=== PATIENT | male | born 2000 | race Hispanic/Latino ===

== ENCOUNTER 2019-10-21 23:14 | Emergency (ER) | payer SELFPAY ==
[2019-10-21] MEDS ORDERED: NEOMY/POLY/HC 1% OTIC DROPS ONE (23:37)
--- NOTE | 2019-10-21 23:57 | ER ---
Nurse's Notes [facility] Name: Phillip Moralez Age: 19 yrs Sex: Male : 2000 Arrival Date: 10/21/2019 Time: 23:17 Bed 23 Private MD: Diagnosis: Other otitis externa, bilateral Presentation: 10/20 23:23 Chief complaint: Patient states: pt reports having Bilateral ear pain that began last sg night and worsening this morning, pt states having taken some amoxcillin and tylenol about 8 hrs ago, pt states having pain that is worsening this evening. Coronavirus screen: Proceed with normal triage. Ebola Screen: Patient negative for fever greater than or equal to 101.5 degrees Fahrenheit, and additional compatible Ebola Virus Disease symptoms Patient denies exposure to infectious person. Patient denies travel to an Ebola-affected area in the 21 days before illness onset. No symptoms or risks identified at this time. 23:23 Method Of Arrival: Ambulatory sg 23:23 Initial Sepsis Screen: Does the patient meet any 2 criteria? HR > 90 bpm. Does the sg patient have a suspected source of infection? No. Patient's initial sepsis screen is negative. Risk Assessment: Do you want to hurt yourself or someone else? Patient reports no desire to harm self or others. Onset of symptoms was October 21, 2019. Care prior to arrival: None. 23:23 Acuity: VICTOR M 3 sg Triage Assessment: 23:21 General: Appears in no apparent distress. uncomfortable, Behavior is calm, cooperative. ls4 23:21 Pain: Complains of pain in left ear and right ear Pain currently is 10 out of 10 on a ls4 pain scale. EENT: Tympanic membrane reddened on right ear and left ear. Historical: - Allergies: 23:26 No Known Allergies; sg - Home Meds: 23:26 None [Active]; sg - PMHx: 23:26 None; sg - PSHx: 23:26 None; sg - Immunization history:: Adult Immunizations up to date. - Social history:: Smoking status: Patient denies any tobacco usage or history of. Screenin:21 Abuse screen: Denies threats or abuse. Denies injuries from another. Nutritional ls4 screening: No deficits noted. Tuberculosis screening: No symptoms or risk factors identified. Fall Risk None identified. Vital Signs: 23:23 BP 140 / 90; Pulse 118; Resp 18; Temp 98.7; Pulse Ox 100% on R/A; Weight 83.91 kg; sg Height 5 ft. 9 in. (175.26 cm); Pain 10/10; 23:23 Body Mass Index 27.32 (83.91 kg, 175.26 cm) ED Course: 23:17 Patient arrived in ED. cl3 23:18 Noelle Farooq FNP-C is [facility]. kb 23:18 Aramis Plascencia MD is Attending Physician. kb 23:21 Patient has correct armband on for positive identification. Bed in low position. Call ls4 light in reach. Side rails up X 1. Pulse ox on. NIBP on. Verbal reassurance given. 23:21 No provider procedures requiring assistance completed. Patient did not have IV access ls4 during this emergency room visit. 23:26 Triage completed. 23:26 Arm band placed on. 10/21 00:07 Pretty Plascencia, RN is Primary Nurse. ls4 Administered Medications: 10/20 23:40 Drug: Cortisporin Drops 4 drops Route: Otic; Site: both ears; ls4 10/21 00:08 Follow up: Response: No adverse reaction; Marked relief of symptoms ls4 Outcome: 10/20 23:56 Discharge ordered by . 10/21 00:08 Discharged to home ambulatory. ls4 Condition: good Discharge instructions given to patient, Instructed on discharge instructions, follow up and referral plans. medication usage, Demonstrated understanding of instructions, follow-up care, medications, Prescriptions given X 1. 00:12 Patient left the ED. ls4 Signatures: Noelle Farooq FNP-C FNP-Ckb Gay, Steven, RN RN Pretty Plascencia, RN RN ls4 Thanh Rod cl3
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
[2019-10-22 00:37] VITALS: BP 140/90; TEMP 98.7; O2SAT 100
== END 2019-10-22 00:12 | disposition home or self-care (01) ==
LOC: ER 23:14
DX: H60.8X3 Other otitis externa, bilateral (principal)
CPT/HCPCS: 99283

== ENCOUNTER 2019-10-22 12:45 | Emergency (ER) | payer SELFPAY ==
[2019-10-22] MEDS ORDERED: HYDROCODONE/APAP 7.5/325 MG TAB ONE (13:32)
--- NOTE | 2019-10-22 13:41 | ER ---
Nurse's Notes [facility] Name: Phillip Moralez Age: 19 yrs Sex: Male : 2000 Arrival Date: 10/22/2019 Time: 12:48 Bed 16 Private MD: Diagnosis: Acute serous otitis media, bilateral Presentation: 10/21 13:02 Chief complaint: Patient states: seen in ER last night for bilateral ear pain and given ss ear drops. Pt reports that the pain is much worse and he feels as if he has swelling to his L face. Coronavirus screen: Proceed with normal triage. Patient denies a cough. Patient denies shortness of breath or difficulty breathing. Patient denies measured and/or subjective temperature greater than 100.4F prior to today's visit. Patient denies travel on a cruise ship or to a country the [facility] currently lists as an affected area. Patient denies contact with known and/or suspected case of COVID-19. Ebola Screen: Patient denies exposure to infectious person. Patient denies travel to an Ebola-affected area in the 21 days before illness onset. Initial Sepsis Screen: Does the patient meet any 2 criteria? No. Patient's initial sepsis screen is negative. Does the patient have a suspected source of infection? No. Patient's initial sepsis screen is negative. Risk Assessment: Do you want to hurt yourself or someone else? Patient reports no desire to harm self or others. Onset of symptoms was October 20, 2019. 13:02 Method Of Arrival: Ambulatory ss 13:02 Acuity: VICTOR M 4 ss Historical: - Allergies: 13:04 No Known Allergies; ss - PMHx: 13:04 None; ss - PSHx: 13:04 None; ss - Immunization history:: Adult Immunizations up to date. - Social history:: Smoking status: Patient reports the use of cigarette tobacco products, smokes one-half pack cigarettes per day, Patient/guardian denies using alcohol, street drugs, The patient lives with family. - Family history:: not pertinent. Screenin:14 Abuse screen: Denies threats or abuse. Nutritional screening: No deficits noted. em Tuberculosis screening: No symptoms or risk factors identified. Fall Risk None identified. Assessment: 13:54 General: Appears in no apparent distress. uncomfortable, Behavior is calm, cooperative, vc appropriate for age. Pain: Complains of pain in left ear and right ear Pain does not radiate. Pain currently is 8 out of 10 on a pain scale. Pain: Pain currently is 6 out of 10 on a pain scale. Neuro: Level of Consciousness is awake, alert, obeys commands, Oriented to person, place, time, situation, Appropriate for age. Cardiovascular: Capillary refill < 3 seconds Patient's skin is warm and dry. Respiratory: Airway is patent Respiratory effort is even, unlabored, Respiratory pattern is regular, symmetrical. GI: No signs and/or symptoms were reported involving the gastrointestinal system. : No signs and/or symptoms were reported regarding the genitourinary system. EENT: Reports pain in left ear and right ear. Derm: No signs and/or symptoms reported regarding the dermatologic system. Musculoskeletal: Circulation, motion, and sensation intact. Range of motion: intact in all extremities. Vital Signs: 13:02 BP 143 / 94; Pulse 107; Resp 16; Temp 99.9(TE); Pulse Ox 97% on R/A; Weight 89.81 kg; ss Height 5 ft. 6 in. (167.64 cm); Pain 8/10; 13:02 Body Mass Index 31.96 (89.81 kg, 167.64 cm) ED Course: 12:48 Patient arrived in ED. mr 13:04 Triage completed. ss 13:04 Arm band placed on right wrist. ss 13:06 Jose Ceja, ESTEFANY is Primary Nurse. em 13:07 Eliana Sawant MD is Attending Physician. ma2 13:14 Bed in low position. Call light in reach. em 13:40 Elvira Aquino MD is Referral Physician. ma2 14:01 No provider procedures requiring assistance completed. Patient did not have IV access vc during this emergency room visit. Administered Medications: 13:30 Drug: [place] (7.5 mg-325 mg) 1 tabs Route: PO; em 13:58 Follow up: Response: No adverse reaction vc Outcome: 13:41 Discharge ordered by . ma2 14:02 Discharged to home ambulatory. vc 14:02 Condition: good 14:02 Discharge instructions given to patient, Instructed on discharge instructions, follow up and referral plans. medication usage, Demonstrated understanding of instructions, follow-up care, medications, Prescriptions given X 2. 14:03 Patient left the ED. vc Signatures: Kassidy Hampton Edgar, RN RN Edyta Andersen RN RN Eliana Sawant MD MD ma2 Laura Saez RN RN vc
--- NOTE | 2019-10-22 13:41 | EDPHYS ---
Physician Documentation [facility] Name: Phillip Moralez Age: 19 yrs Sex: Male : 2000 Arrival Date: 10/22/2019 Time: 12:48 Bed 16 Private MD: ED Physician Eliana Sawant HPI: 10/21 13:39 This 19 yrs old Male presents to ER via Ambulatory with complaints of Ear Pain.ma2 13:39 The patient presents with pain. The complaints affect the right ear and left ear. ma2 Onset: The symptoms/episode began/occurred gradually, 3 day(s) ago. Associated signs and symptoms: Pertinent negatives: lightheadedness, sinus trouble, sore throat, vertigo. Severity of symptoms: At their worst the symptoms were moderate in the emergency department the symptoms are unchanged. The patient has not experienced similar symptoms in the past. Historical: - Allergies: 13:04 No Known Allergies; ss - PMHx: 13:04 None; ss - PSHx: 13:04 None; ss - Immunization history:: Adult Immunizations up to date. - Social history:: Smoking status: Patient reports the use of cigarette tobacco products, smokes one-half pack cigarettes per day, Patient/guardian denies using alcohol, street drugs, The patient lives with family. - Family history:: not pertinent. ROS: 13:39 Constitutional: Negative for fever, chills, and weight loss. ma2 13:39 All other systems are negative. Exam: 13:39 Constitutional: This is a well developed, well nourished patient who is awake, alert, ma2 and in no acute distress. 13:39 Neck: Trachea midline, no thyromegaly or masses palpated, and no cervical lymphadenopathy. Supple, full range of motion without nuchal rigidity, or vertebral point tenderness. No Meningismus. Chest/axilla: Normal chest wall appearance and motion. Nontender with no deformity. No lesions are appreciated. Cardiovascular: Regular rate and rhythm with a normal S1 and S2. No gallops, murmurs, or rubs. Normal PMI, no JVD. No pulse deficits. Respiratory: Lungs have equal breath sounds bilaterally, clear to auscultation and percussion. No rales, rhonchi or wheezes noted. No increased work of breathing, no retractions or nasal flaring. Abdomen/GI: Soft, non-tender, with normal bowel sounds. No distension or tympany. No guarding or rebound. No evidence of tenderness throughout. Neuro: Awake and alert, GCS 15, oriented to person, place, time, and situation. Cranial nerves II-XII grossly intact. Motor strength 5/5 in all extremities. Sensory grossly intact. Cerebellar exam normal. Normal gait. 13:39 ENT: TM's: bulging, erythema, fluid levels. Vital Signs: 13:02 BP 143 / 94; Pulse 107; Resp 16; Temp 99.9(TE); Pulse Ox 97% on R/A; Weight 89.81 kg; ss Height 5 ft. 6 in. (167.64 cm); Pain 8/10; 13:02 Body Mass Index 31.96 (89.81 kg, 167.64 cm) ss MDM: 13:14 Patient medically screened. ma2 13:39 Differential diagnosis: otitis media, otitis externa, acute otalgia, serotympanum. Data ma2 reviewed: vital signs, nurses notes. Counseling: I had a detailed discussion with the patient and/or guardian regarding: the historical points, exam findings, and any diagnostic results supporting the discharge/admit diagnosis, the presence of at least one elevated blood pressure reading (>120/80) during this emergency department visit, the need for outpatient follow up. Response to treatment: the patient's symptoms have mildly improved after treatment. Administered Medications: 13:30 Drug: [place] (7.5 mg-325 mg) 1 tabs Route: PO; em 13:58 Follow up: Response: No adverse reaction vc Disposition: 10/22/19 13:41 Discharged to Home. Impression: Acute serous otitis media, bilateral. - Condition is Stable. - Discharge Instructions: Otitis Media, Adult, [id number]. - Prescriptions for Diclofenac Sodium 75 mg Oral Tablet Sustained Release - take 1 tablet by ORAL route 2 times per day; 30 tablet. Medrol (Royce) 4 mg Oral Tablets, Dose Pack - take 1 tablet by ORAL route as directed - follow package instructions; 1 packet. - Medication Reconciliation Form, Thank You Letter, Antibiotic Education, Prescription Opioid Use form. - Follow up: Private Physician; When: Tomorrow; Reason: Continuance of care. Follow up: Elvira Aquino MD; When: Tomorrow; Reason: If symptoms return. Signatures: Jose Ceja RN RN Edyta Andersen RN RN ss Alzahri, Mohammad, MD MD ma2 Calcote, Vanessa, RN RN vc Corrections: (The following items were deleted from the chart) 14:03 13:41 10/22/2019 13:41 Discharged to Home. Impression: Acute serous otitis media, vc bilateral. Condition is Stable. Prescriptions for Diclofenac Sodium 75 mg Oral Tablet Sustained Release - take 1 tablet by ORAL route 2 times per day; 30 tablet, Medrol (Royce) 4 mg Oral Tablets, Dose Pack - take 1 tablet by ORAL route as directed - follow package instructions; 1 packet. and Forms are Medication Reconciliation Form, Thank You Letter, Antibiotic Education, Prescription Opioid Use. Follow up: Private Physician; When: Tomorrow; Reason: Continuance of care. Follow up: Elvira Aquino; When: Tomorrow; Reason: If symptoms return. ma2
[2019-10-22 14:10] VITALS: BP 143/94; TEMP 99.9; O2SAT 97
== END 2019-10-22 14:03 | disposition home or self-care (01) ==
LOC: ER 12:45
DX: H65.03 Acute serous otitis media, bilateral (principal)
CPT/HCPCS: 99283